=== PATIENT | male | born 1965 | race Caucasian/White ===

== ENCOUNTER 2019-12-21 22:01 | Observation (INO) ==
[2019-12-21] MEDS ORDERED: Isovue-370 500 ML BOTTLE IVP ONE (22:22)
[2019-12-21 23:17] LABS: Basophils # 0.1 K/mcL (0.0-0.2); Basophils % 1.1 %; Eosinophils # 0.2 K/mcL (0.0-0.6); Hemoglobin 16.1 g/dL (12.9-16.9); Immature Granulocytes % 0.3 % (0-4); Lymphocytes % 27.4 %; Mean Corpuscular Hemoglobin 30.4 pg (28.0-33.3); Mean Corpuscular Volume 86.8 fL (83.0-100.0); Monocytes % 13.6 %; Platelet Count 229 K/mcL (140-400); Red Cell Distribution Width 12.5 % (11.5-14.5); Segmented Neutrophils % 54.6 %; White Blood Count 7.3 K/mcL (4.3-11.1)
[2019-12-21 23:32] LABS: Calcium 10.7 mg/dL (8.6-10.3); Potassium 3.6 mEq/L (3.5-5.1)
[2019-12-22] MEDS ORDERED: Dexamethasone 4 MG/ML VIAL IVP ONE (00:16)
[2019-12-22] MEDS ORDERED: *HR* Promethazine 25 MG/ML VIAL IVP PRN (01:25)
[2019-12-22] MEDS ORDERED: Naloxone 0.4 MG/ML INJ IVP PRN (01:25)
[2019-12-22] MEDS ORDERED: 0.9 % Sodium Chloride 1,000 ML IVC SCH (01:30)
[2019-12-22] MEDS ORDERED: Pantoprazole 40 MG VIAL IVP SCH (01:57)
[2019-12-22] MEDS ORDERED: Morphine Sulfate 2 MG/ML SYRINGE IVP ONE (04:51)
[2019-12-22] MEDS ORDERED: *HR* Heparin 5,000 UNIT/ML VIAL SQ SCH (06:00)
[2019-12-22 06:45] LABS: BUN/Creatinine Ratio 29 (6-26); Blood Urea Nitrogen 33 mg/dL (6-20); Calcium 10.1 mg/dL (8.6-10.3); Carbon Dioxide 23 mEq/L (23-29); Chloride 100 mEq/L (98-107); Glucose 181 mg/dL (70-105); Osmolality,Calculated 294 (280-300); Potassium 3.9 mEq/L (3.5-5.1); Sodium 136 mEq/L (136-145); eGFR For African Americans > 60 (> 60); eGFR For Non-African Americans > 60 (> 60)
[2019-12-22] MEDS ORDERED: Insulin LISPRO 300 UNITS/3 ML VIAL SQ SCH (07:30)
[2019-12-22 07:34] VITALS: BP 114/73
[2019-12-22] MEDS ORDERED: predniSONE 20 MG TABLET PO SCH (10:30)
== END 2019-12-22 12:49 | disposition home or self-care (01) ==
LOC: 3BNU 22:01 → EMEROOARM 22:01 → SUATTDRO 12-22 01:52 → 3BNU 12-22 02:30
PROVIDERS: ADMIT Internal Medicine; ATTEND Internal Medicine